=== PATIENT | male | born 1945 | race Caucasian/White ===

== ENCOUNTER 2018-08-14 11:18 | Outpatient (CLI) | payer MEDICARE ==
--- NOTE | 2018-08-14 13:38 | ULT ---
ABDOMINAL ULTRASOUND: 08/14/2018 PROVIDED CLINICAL HISTORY: Right upper quadrant pain. FINDINGS: The visualized abdominal aorta is nonaneurysmal. Atherosclerotic vascular calcification is demonstra lalito. The visualized IVC and pancreas appear normal. The liver demonstrates no evidence for mass or intrahepatic biliary ductal dilatation. The common duct is not dilated. The gallbladder demonstrate s no stones, wall thickening, or pericholecystic fluid. The kidneys demonstrate no evidence for hydr onephrosis or mass. The spleen is not enlarged and demonstrates no focal abnormality. IMPRESSION: Unremarkable abdominal ultrasound. POS: [facility]
== END 2018-08-14 11:19 | disposition home or self-care (01) ==
LOC: ULT 11:18
PROVIDERS: ATTEND Physician Assistant
DX: R10.11 Right upper quadrant pain (principal)
CPT/HCPCS: 76700